=== PATIENT | male | born 1990 | race Hispanic/Latino ===

== ENCOUNTER 2023-09-20 10:02 | Emergency (ER) | payer OTHER ==
[2023-09-20] MEDS ORDERED: Ibuprofen 200 MG TAB ONE (11:36)
[2023-09-20 12:36] LABS: SARS-CoV-2 NAA Rapid Test DETECTED (NotDetected)
== END 2023-09-20 11:00 | disposition home or self-care (01) ==
LOC: ERS 10:02
DX: U07.1 COVID-19 (principal); Z87.891 Personal history of nicotine dependence
CPT/HCPCS: 99283

== ENCOUNTER 2023-09-20 17:37 | Emergency (ER) | payer OTHER | END 2023-09-20 18:39 | disposition home or self-care (01) | LOC: ERS 17:37 | DX: Z53.21 Procedure and treatment not carried out due to patient leaving prior to being seen by health care provider (principal) ==

== ENCOUNTER 2023-09-25 09:02 | Emergency (ER) | payer OTHER | END 2023-09-25 09:35 | disposition home or self-care (01) | LOC: ERS 09:02 | DX: L02.91 Cutaneous abscess, unspecified (principal) | CPT/HCPCS: 99283 ==